=== PATIENT | female | born 1950 | race Caucasian/White ===

== ENCOUNTER 2025-10-09 11:18 | Day surgery (SDC) | payer OTHER, SELFPAY ==
[2025-09-25 09:33] VITALS: BMI 23.4
--- NOTE | 2025-10-08 15:57 | PM.GYNHP.1 ---
History of Present Illness History of Present Illness Narrative: Sanjana López is a 75 year old female Date of procedure:?? 10-09-25 Preoperative diagnosis:? Rectocele Planned Procedure:?? Posterior colporrhaphy specifically with levator plication she has an atypical rectocele. There is no obvious vaginal bulge. The rectocele is lateral, to the right side, which matches where she needs to splint. It is identified only on rectal exam The bulge is at least 3-4 cm and goes laterally towards the pelvic muscles on the right side, between the vagina and the rectum. It does not extend to the left side. It is definitely not a typical midline bulge. She is not sexually active, which is fortunate, because repairing this is going to require reconstruction of the muscles that could potentially make it difficult to have sex in the future. She is okay with this Has postop pain meds at already CC: Splinting for bowel movements, concern for rectocele HPI: 75-year-old female who presents for evaluation of above complaint.?? She reports onset of symptoms 6 months ago.?? She considers this a? Moderate? problem. She reports a prior rectocele that was repaired in 2019 at [facility] in [place]. Over the last 6 months she notes that she is again having difficulty with defecation and needs to splint for bowel movements and has incomplete evacuation of her bowel movements. This time, she does not notice a vaginal bulge. She reports that she has a bowel movement every 2-3 days, strains more than 75% of the time, often triggers them to occur with use of suppositories. She takes fiber once daily, and uses a stool softener about once a week. I suggested that she continue the fiber and increase the stool softeners to once or twice daily with a goal of trying to have a bowel movement every 1-2 days instead of every 2-3 days. If a rectocele is identified below then we can offer her repeat repair prior hyst -yes -x2 c-sec -0 Pelvic Floor Review of Systems: (HPI) Stress Urinary Incontinence symptoms (SHONA): 0 Triggers include:??? 0 ? Urge Incontinence symptoms (Urge UI): 0 Triggers include:??? 0 ? Pads: She wears 0 Overactive Bladder symptoms (OAB):? ? Frequency:?? Every 2-3 hours Nocturia:?? X2 Urgency:?? Minimal Prior incontinence treatment includes:? Medical:? No Surgical:? No? Kegels:?? Yes Physical therapy:?No? Pessary:?No? Diet / Fluids: Fluid restriction:? No Excessive fluids:?No Pain symptoms:? Painful bladder:???No Dysuria:??? No Dyspareunia:? No Dysmenorrhea:? No Urinary Risk Factors UTI?s, recurrent:? No Hematuria:? No Kidney Stones:?No? Tobacco use:? No Pelvic Organ Prolapse (POP) symptoms:?? Bulge:?0 Pressure and /or? Heaviness:?0? Splint for defecation or voiding:???+ Voiding dysfunction: Abnormal stream:? No Strain to void:? No Incomplete emptying:?No Voiding difficulty:? No Retention:??? No Bowel Function: Constipation:?+? Strain to defecate:?+ Fiber:?+ Laxatives:?+ Fecal Incontinence:? Liquid stool:? No Solid stool:?No?? Sexual function Sexually active:? occ Incontinence with sex:? No ? General Review of Systems: Constitutional, CV, Endo, Musc-skel, Eyes, Cancer, Skin, Breast, GI, Heme/Lymph, Psych, Urinary, Neuro, Locomotive Pipe Fitter, Resp, Sexual:??? Pertinent positives listed above in HPI All others reviewed and negative. . . [facility] Medical History (Updated 08/14/25 @ 15:33 by Reji Trujillo MD) Rectocele Incomplete passage of stool Difficulty defecating Comment: See some of the scanned documents from [facility] for her Medical history. Past medical history notable for high cholesterol Depression Chronic back pain high blood pressure Uses semaglutide and needs to stop this for at least 1 week prior to surgery Chronic kidney disease History of diabetes not currently needing insulin Left bundle branch block Long-term use of opiates3 History of colon polyps and history of diverticulosis without diverticulitis Past surgical history Sleeve gastrectomy Inguinal hernia repair with mesh Panniculectomy Tonsillectomy adenoidectomy appendectomy Prior posterior repair Right cataract Total hysterectomy Left cataract Gallbladder Allergies codeine (CODEINE) Allergy (Unknown, Verified 08/14/25 14:51) Medications lisinopril 20 mg tablet (Prinivil) 20 mg PO QDAY ##0 11/21/16 [History Confirmed 08/14/25] oxycodone 5 mg capsule 5 mg PO PRN PRN ##0 11/21/16 [History Confirmed 08/14/25] atorvastatin 40 mg tablet 40 mg PO DAILY 08/14/25 [History Confirmed 08/14/25] bupropion HCl 150 mg 24 hr tablet, extended release 150 mg PO QAM 08/14/25 [History Confirmed 08/14/25] empagliflozin 10 mg tablet (Jardiance) 10 mg PO DAILY 08/14/25 [History Confirmed 08/14/25] gabapentin 300 mg capsule (Neurontin) 300 mg PO BID ##0 08/14/25 [History Confirmed 08/14/25] quetiapine 150 mg tablet 150 mg PO DAILY 08/14/25 [History Confirmed 08/14/25] semaglutide 0.25 mg or 0.5 mg (2 mg/1.5 mL) subcutaneous pen injector (Ozempic) 0.5 mg SUBCUT QWEEK 08/14/25 [History Confirmed 08/14/25] Family history sister with renal cancer Social history Smokes tobacco Tobacco & Substance Use Smoking Status: Current every day smoker Exam Vitals 08/14/2514:57 Height 5 ft Weight 120 lb BMI 23.4 BP 147/82 H Blood Pressure Location Rt radial Position Sitting Pulse 88 Pulse Source Monitor Pulse Oximetry (%) 98 Oxygen Delivery Method room air General: healthy, alert, coherent, no acute distress, cooperative, nontoxic Pulmonary: normal breathing, no distress Abdomen: soft, no mass, non-distended, no hernia, non-tender Vulva: Normal labia majora, labia minora, introitus, and clitoris, non-tender Urethra meatus: normal, no discharge Perineum: Normal, non-tender Urethra: No mass, non-tender Bladder: no mass, non-tender Vagina: No lesions, no discharge, + atrophy, non-tender Prolapse - she has an atypical rectocele. There is no obvious vaginal bulge. The rectocele is lateral, to the right side, which matches where she needs to splint. It is identified only on rectal exam The bulge is at least 3-4 cm and goes laterally towards the pelvic muscles on the right side, between the vagina and the rectum. It does not extend to the left side. It is definitely not a typical midline bulge. There is no cystocele or vaginal vault prolapse. She is not sexually active, which is fortunate, because repairing this is going to require reconstruction of the muscles that could potentially make it difficult to have sex in the future. She is okay with this Levators: Non-tender hyst Bimanual: no mass, no adnexal mass, non-tender Anus: No lesion, non-tender, no hemorrhoid Rectal exam, no mass, nontender, findings as noted above for the rectocele Assessment & Plan (1) Difficulty defecating: Status: Acute (2) Incomplete passage of stool: Status: Acute (3) Rectocele: Assessment and Plan ? Patient counseled regarding above conditions.? Educational materials given to patient. 1. Pelvic Organ Prolapse - Stage 2 rectocele, internal, right sided.? This diagnosis and its etiology was discussed with the patient.? Treatment options were discussed including: expectant management, pessary trial, and surgical intervention. We briefly discussed risks and benefits of surgery. All surgery for prolapse is not 100% successful and there is a chance of recurrence or failure. A pessary would not work for this unusual rectocele, so not indicated she desires surgery my recommendation = posterior colporrhaphy, but not in the usual way, would need to be primarily repair of the muscle defect on the right side between the vagina and the rectum in the pelvic muscles on the right side see below for counseling Follow-up: Operating room Regarding postoperative pain control, we discussed this, see the management plan below. She presently has Tylenol and ibuprofen and some old prescriptions for oxycodone for her chronic back pain. So she reports that she does not need any additional postoperative pain medicine, she will manage this with what she has Surgical Counselling Note Patient seen for surgical counselling.? She desires surgical repair. Please see? H & P for exam and discussion. Date of procedure:?? 10-09-25 Preoperative diagnosis:? Rectocele Planned Procedure:?? Posterior colporrhaphy specifically with levator plication Postop Meds-already has at home Tylenol 1000 mg, ?3 times a day? Motrin 400 mg (over age 65 yr) -or- 600 mg (under age 65 yr) ,? 3 times a day Oycodone 5 mg,? take 1 pill every 4-6 hr as needed, ? Colace,? 1 pill BID, for constipation Patient counseled extensively about the Risks, Benefits, and Alternatives to surgery.? She was offered the opportunity to ask any questions, and all questions were answered. ? Surgical Risks include: Bleeding, Hemorrhage, Transfusion, Infection (especially wound or bladder), Injury to adjacent organs (especially bladder, ureter, bowel, blood vessels, nerves), Postop or Chronic Pain, need for Reoperation, and Life-threatening event (especially M.I., CVA, PE, DVT). Procedure Risks include: Failure to Cure condition, Recurrence of condition months or years later, Urinary incontinence, Voiding dysfunction or Urinary Retention with prolonged catheter use, Poor wound healing, Erosions of any mesh or graft used, Dyspareunia, Vaginal scarring or narrowing, Need for additional surgery (immediate or delayed).? The expected cure and improvement and failure rates were discussed. Patient counseled to avoid the following for 6 weeks after surgery: (1) Impact sports (like running or jumping), walking and stairs OK (2) Lifting over 20# (3) Sexual intercourse No limits after 6 weeks. ? Good exercise tolerance, > 4 Mets. Her current medications were reviewed, and instructions given over which to use and which to discontinue before surgery.? Post-operative care instructions reviewed.? We discussed post-operative pain: Pain should be in the mild-moderate range, but can be moderate-severe for the first few days.?? Prescriptions will typically be given for (1) acetaminophen (Tylenol) and (2) non-steroidal anti-inflammatory drug (NSAID, like Motrin or Naprosyn), use both together, around the clock. Prescription will also be given for a (3) narcotic pain medication. Use the narcotic as needed, as a booster to the Tylenol and NSAID. You might need 0-4 narcotic pills a day typically. The narcotic will only be needed for a few days.?? Gradually use less of the narcotic, but continue the Tylenol and NSAID.? After a few days, the narcotic should no longer be needed, and only the Tylenol and NSAID will be needed.? Warm packs or cold packs can also be used for pain.??Do not drive for as long as you are using the narcotic pain medication? - this should only be a few days.?? Constipation is associated with use of narcotic pain medications, and can be improved with use of a stool softener, or fiber, or a mild laxative.? If you are sent home from the hospital with a Licea Catheter in place:? please call the office on the day after surgery We will usually remove the catheter 2-4 days after surgery: a. You will perform an at home Licea catheter removal -or- b. You will come in to the office for a voiding trial, (For some unusual surgeries, we might leave the catheter in for up to 2 weeks, and then remove it.) Instructions for at home Licea catheter removal..... For at-home Licea catheter removal, this can be done on postop day 2 or 3 or 4, depending on various factors. 1. At 6 or 7 a.m., have the patient cut the Licea catheter with scissors, while standing in a shower or bath tub. a. Cut the catheter right in the middle of the tubing, about 6 inches from the body. b. The sterile water that is inside the Licea balloon will leak all over the floor of the shower or bath tub. This is expected. c. The catheter will either fall out of the urethra, or just gently pull on it and it will come out. 2. Now, the bladder will gradually fill up over the next few hours. 3. Go ahead and empty the bladder when you feel an urge to void. Please note how strong the urine stream is. a. If the urine stream is normal or close to normal, then everything is good to go. b. If the urine stream is slow or you can not void, then return to the clinic in the afternoon. We will place another Licea catheter. We will repeat the voiding trial in 3-4 days. All of her questions were answered Reji Trujillo MD UroGynecology & Pelvic Reconstructive Surgery [facility] Medical History (Updated 09/25/25 @ 09:42 by Natali Grullon RN) Insomnia [facility]CI use of opioid Chronic pain Osteoarthritis Anxiety Colon polyps Left bundle branch block CKD (chronic kidney disease) Chronic back pain Depression HLD (hyperlipidemia) Cervical cancer Diabetes HTN (hypertension) Rectocele Incomplete passage of stool Difficulty defecating Surgical History (Updated 09/25/25 @ 09:42 by Natali Grullon RN) Hx of appendectomy Hx of cholecystectomy S/P bilateral cataract extraction History of tonsillectomy and adenoidectomy S/P panniculectomy S/P inguinal hernia repair History of sleeve gastrectomy (2018) H/O rectocele repair (2019) Hx of hysterectomy (1980) Social History Smoking Status: Current every day smoker Meds Home Medications and Allergies Home Medications ?Medication ?Instructions ?Recorded ?Confirmed ?Type lisinopril 20 mg tablet (Prinivil) 20 mg PO QDAY ##0 11/21/16 08/14/25 History oxycodone 5 mg capsule 5 mg PO PRN PRN ##0 11/21/16 08/14/25 History atorvastatin 40 mg tablet 40 mg PO DAILY 08/14/25 08/14/25 History bupropion HCl 150 mg 24 hr tablet, 150 mg PO QAM 08/14/25 08/14/25 History extended release empagliflozin 10 mg tablet 10 mg PO DAILY 08/14/25 08/14/25 History (Jardiance) gabapentin 300 mg capsule 300 mg PO BID ##0 08/14/25 08/14/25 History (Neurontin) quetiapine 150 mg tablet 150 mg PO DAILY 08/14/25 08/14/25 History semaglutide 0.25 mg or 0.5 mg (2 0.5 mg SUBCUT QWEEK 08/14/25 08/14/25 History mg/1.5 mL) subcutaneous pen injector (Ozempic) Allergies Allergy/AdvReac Type Severity Reaction Status Date / Time codeine (CODEINE) Allergy Unknown Nausea and Verified 09/25/25 09:44 vomiting. NSAIDS (Non-Steroidal Allergy Gastric Verified 09/25/25 09:44 Anti-Inflamma sleeve. empagliflozin AdvReac Yest Verified 09/25/25 09:44 infection. metformin AdvReac Nausea, Verified 09/25/25 09:44 diarrhea. Assessment & Plan Time-Based Coding :: [TOTAL MINUTES] spent with patient and on the chart (including review of chart, obtaining history, exam, reviewing outside data, placing orders, documenting exam and treatment plan, and counseling patient) on [DATE].
[2025-10-09] VITALS (8 sets, daily range): BP systolic 109–170; BP diastolic 70–88; PULSE 66–79; RESP 14–16; TEMP 36.2–36.4; O2SAT 94–100
[2025-10-09] MEDS: LACTATED RINGERS 1,000 ML 42 ML IV (12:13)
[2025-10-09] MEDS: GABAPENTIN 300 MG CAPSULE PO (12:17)
[2025-10-09] MEDS: ACETAMINOPHEN 325 MG TABLET 975 MG PO (12:17)
--- NOTE | 2025-10-09 12:38 | PM.PREOP ---
Pre-operative Note Interval Note History & Physical reviewed/Exam performed by Physician: Yes Changes to H&P: No
--- NOTE | 2025-10-09 13:43 | SUR.OPER ---
Lithotomy on padded OR bed, head on pillow, arms secured on padded arm boards at <90 degrees abduction. Legs secured in padded yellow fins stirrups.
[2025-10-09] MEDS: LIDOCAINE 1% W/EPI 10ML 20 ML INJ (13:47)
--- NOTE | 2025-10-09 15:36 | P.OP_ITS ---
Operative Date/Time/Diagnoses Date of procedure: 10/09/25 Time of procedure: 13:45 Pre-op diagnosis: rectocele Post-op diagnosis: other (rectocele, vaginal vault prolapse ) Procedure & Clinicians Procedure: Procedures Operation Date: 10/09/25 13:15 Actual Procedure Side Surgeon p Posterior Colporrhaphy, rectocele, Sacrospinous vault suspension Not Applicabl e Reji Trujillo MD Operative Notes Findings: Operative Note Surgeon:? Reji Trujillo MD Infrastructure Technician: None Pre-Op Diagnosis: Rectocele, atypical Post-Op Diagnosis: Rectocele and vaginal vault prolapse Procedure:?? Posterior colporrhaphy Sacrospinous ligament vaginal vault suspension Findings (brief): 1. Exam under anesthesia was consistent with a preop exam. She has an a typical rectocele that is primarily noted on rectovaginal exam and is located right side instead of midline. There was obvious scarring of the midline of the vagina as well as a short vaginal length from prior surgery. On dissection it was obvious that she had a prior posterior colporrhaphy. Also on dissection it was evident that she had an upper enterocele and a vaginal vault prolapse that was needing to be repaired in order to adequately correct her rectocele as the detachment was right-sided an apical rather than the usual midline. Definitely atypical. 2. Also, due to the prior posterior repair, she had an aggressive repair of the perineum. Therefore a superficial episiotomy was made in order to gain access to the vagina prior to making the midline vaginal incision. This was closed at the end of the case 3. As noted above, the defect was primarily right-sided and apical. To correct the apical defect, it was recognized that she needed a sacrospinous ligament vaginal vault suspension. So intra op decision was made to add this to the surgical procedure. To sutures of 0 PDS were placed with the Capio instrument and passed through the upper rectovaginal fascia adjacent to the vaginal cuff when this was tied down it gave excellent support to the upper vagina and to the rectocele repair. 4. To correct the right sided defect, additional sutures were placed from the right side of the rectovaginal fascia to the right-sided pelvic muscles lateral to the vagina and rectum, even more lateral than the typical levator muscles that are reapproximated. Three sutures of 0 Vicryl were used to close this defect. 5. There was no redundant posterior vaginal mucosa so no extra mucosa was t rimmed at the end of the case Date of Surgery:? October 09, 2025 Complications:? None Specimens:? None Anesthesia Technique: General endotracheal Estimated Blood Loss (mls):? 50 Blood Replacement (mls):? None Drains:? None Condition:? Stable Procedure in detail: After consent was confirmed, the patient was taken to the operating room and placed under general anesthesia without incident.? Sequential compression devices were in place and active.? She received perioperative antibiotics.? She was then prepped and draped in the usual sterile fashion after placement in the dorsal lithotomy position using the Marco stirrups.? Exam under anesthesia was done with findings as described above. ? Attention was then turned to the posterior vaginal wall. The posterior vaginal mucosa was grasped with Allis clamps and was injected with 20 cc of 0.5% lidocaine / epinephrine 1:200,000.? due to prior posterior repair, the perineum was closed tighter than normal, so a superficial episiotomy was made as part of the vaginal incision. A full-thickness midline 8 cm incision was made in the vaginal mucosa, from the posterior vaginal introitus extending up the posterior vagina to the apex.? The vaginal mucosa was dissected off of the underlying rectovaginal fascia / rectum until the side gann were reached.? This completed the dissection for the rectocele. There was also an enterocele at the apex of the dissection as noted above, repaired later. The Right para- rectal space was dissected using blunt and sharp dissection until the ischial spines and coccyx were palpated.? The sacrospinous ligament was cleared of the overlying adventitial tissue, bilaterally.? This completed the dissection for the sacrospinous ligament suspension.? The capio needle crew truck driver was used to place two 0-PDS sutures through the right sacrospinous ligament, approx 2 cm medial to the ischial spine. These sutures were attached to the upper recto vaginal fascia near the vaginal cuff, later. The posterior vaginal levators and scar tissue from the prior repair were plicated witha running suture of 2-0 vicryl.? A rectal exam was performed during the placement of the sutures to avoid rectal injury.? No sutures were noted in the rectum at the end of the procedure.? This corrected the rectocele in the midline. An enterocele was encountered at the vaginal apex, following the levator plication, as described above. The upper rectovaginal fascia was attached to the posterior peritoneal side of the vaginal cuff with a running suture of 2-0 Vicryl, and this closed off the enterocele Next the SSLF sutures were placed through the upper recto vaginal fascia, near the vaginal cuff. For each of the two 0-PDS sutures, both suture ends were passed through the right side of the vaginal apex, about 1 cm apart.? Next, the?upper half of the posterior vaginal incision was closed with running 2-0 vicryl.? Then, each of the PDS sutures were tied down, with excellent support of the vaginal apex. This also closed the upper part of the rectocele. 4 additional interruped sutures of 0-vicryl were placed to reconnect the right side of the RV fascia to the pelvic sidewall muscles, to repair the right side of the defect of her atypical rectocele. No posterior vaginal mucosa from the rectocele was trimmed, and the incision was closed with 2-0 vicryl.? Hemo stasis was noted. Sponge, needle and instrument count was correct.? The patient tolerated the procedure well and was taken to the recovery room in stable condition. Reji Trujillo MD UroGynecology & Pelvic Reconstructive Surgery [place], [place] Applied: none
[2025-10-09] MEDS: KETOROLAC 30 MG/ML VIAL 15 MG IV (15:51)
== END 2025-10-09 17:21 | disposition home or self-care (01) ==
PROVIDERS: PCP Nurse Practitioner Family; Referring Provider Obstetrics & Gynecology Gynecology; Visit Provider Obstetrics & Gynecology Gynecology
PROC: (CPT 57250; principal; 2025-10-09 13:15)
DX: N81.6 Rectocele (principal); N81.5 Vaginal enterocele; F17.210 Nicotine dependence, cigarettes, uncomplicated; N81.10 Cystocele, unspecified
CPT/HCPCS: 57250; 57282; 82962; J0330; J0689; J1100; J1885; J2405; J2704; J3010; J7120